=== PATIENT | male | born 1940 | race Caucasian/White ===

== ENCOUNTER 2018-12-18 14:31 | Outpatient (CLI) | payer OTHER ==
--- NOTE | 2018-12-18 16:37 | DI ---
EXAM: Three views of the cervical spine. History: Pain. COMPARISON: None. FINDINGS / IMPRESSION: Cervical spine is visualized to inferior plate of C7. C1-C2 lateral masses are obscured by dictation . Straightening of the normal cervical lordosis. 3 mL retrolisthesis of C6 on C7. Vertebral body heights are preserved. No acute fracture. No prevertebral soft tissue swelling. Multilevel disc space narrowing and endplate spurring, moderate at C3-C4 and advanced at C6-7. Multi level facet arthrosis. Visualized lungs are clear.
== END 2018-12-18 14:32 | disposition home or self-care (01) ==
LOC: RAD 14:31
PROVIDERS: ATTEND Family Medicine
DX: M54.2 Cervicalgia (principal)